=== PATIENT | male | born 2000 | race Caucasian/White ===

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

== ENCOUNTER 2021-10-02 19:29 | Emergency (ER) | payer OTHER ==
[~2021-10-02] VITALS: Ht 175.3 cm; Wt 72.7 kg
[2021-10-02 19:33] VITALS: TEMP 98
[2021-10-02] MEDS ORDERED: DULCOLAX STOOL100 MG PO (19:53)
[2021-10-02 19:55] VITALS: BP 167/84; PULSE 66
== END 2021-10-02 20:04 | disposition home or self-care (01) ==
LOC: COL.ER 19:29
DX: K60.2 Anal fissure, unspecified (principal)